=== PATIENT | female | born 1985 | race Caucasian/White ===

== ENCOUNTER 2023-05-30 08:00 | Outpatient (CLI) | payer BC ==
[2023-05-30 16:20] LABS: BILIRUBIN,URINE NEGATIVE (NEGATIVE); GLUCOSE, URINE (UA) NEGATIVE (NEGATIVE); KETONES,URINE (UA) NEGATIVE (NEGATIVE); LEUKOCYTE ESTERASE, URINE NEGATIVE (NEGATIVE); NITRITE,URINE NEGATIVE (NEGATIVE); OCCULT BLOOD,URINE NEGATIVE (NEGATIVE); PH,URINE 6.5 PH (5.0-7.5); PROTEIN,URINE NEGATIVE (NEGATIVE); UROBILINOGEN,URINE 0.2 (NORMAL) E.U./dL (NORMAL)
[2023-05-30 16:21] LABS: CLARITY,URINE CLEAR (CLEAR)
[2023-05-30 16:59] LABS: BACTERIA,URINE Moderate /HPF (None Seen); RBC,URINE None Seen /HPF (0-5); SQUAMOUS EPITHELIAL CELL,UR FEW Squamous (<= Few); WBC,URINE 0-3 /HPF (0-5)
== END 2023-05-30 23:59 | disposition home or self-care (01) ==
LOC: LAB 08:00
PROVIDERS: ATTEND Obstetrics & Gynecology
DX: Z34.90 Encounter for supervision of normal pregnancy, unspecified, unspecified trimester (principal)
CPT/HCPCS: 81001; 87086

== ENCOUNTER 2023-06-04 08:00 | Outpatient (CLI) | payer BC ==
[2023-06-04 20:47] LABS: CHLAMYDIA TRACHOMATIS DNA NEGATIVE (NEGATIVE); NEISSERIA GONORRHOEAE DNA NEGATIVE (NEGATIVE); TRICHOMONAS VAGINALIS DNA NEGATIVE (NEGATIVE)
== END 2023-06-04 23:59 | disposition home or self-care (01) ==
LOC: LAB.WC 08:00
PROVIDERS: ATTEND Obstetrics & Gynecology
DX: Z11.3 Encounter for screening for infections with a predominantly sexual mode of transmission (principal)
CPT/HCPCS: 87491; 87591; 87661

== ENCOUNTER 2023-06-07 15:34 | Outpatient (CLI) | payer BC ==
[2023-06-07 16:07] LABS: BASOPHILS # (AUTO) 0.1 10^3/uL (0.0-0.1); BASOPHILS % (AUTO) 0.6 %; EOSINOPHILS # (AUTO) 0.2 10^3/uL (0.0-0.7); EOSINOPHILS % (AUTO) 1.5 %; HCT - HEMATOCRIT 35.3 % (37.0-47.0); LYMPHOCYTES # (AUTO) 2.5 10^3/uL (1.5-3.5); LYMPHOCYTES % (AUTO) 23.9 %; MEAN CORPUSCULAR HEMOGLOBIN 30.8 pg (27.0-31.0); MEAN CORPUSCULAR VOLUME 90.7 fL (81.0-99.0); MEAN PLATELET VOLUME 10.6 fL (7.9-10.8); MONOCYTES # (AUTO) 0.6 10^3/uL (0.0-1.0); NEUTROPHILS # (AUTO) 7.1 10^3/uL (1.5-6.6); NEUTROPHILS % (AUTO) 67.8 %; PLT - PLATELET COUNT 250 10^3/uL (130-450); RED BLOOD COUNT 3.89 10^6/uL (4.20-5.40); WHITE BLOOD COUNT 10.5 x10^3/uL (4.8-10.8)
[2023-06-08 04:09] LABS: HBsAG SCREEN Negative (Negative)
[2023-06-08 05:12] LABS: HCV AB Non Reactive (Non Reactive); HIV SCREEN 4TH GENERATION Non Reactive (Non Reactive)
[2023-06-08 07:09] LABS: RPR Non Reactive (Non Reactive)
[2023-06-08 09:09] LABS: VARICELLA-ZOSTER AB IGG 1022 index (Immune >165)
== END 2023-06-07 15:35 | disposition home or self-care (01) ==
LOC: LAB 15:34
PROVIDERS: ATTEND Obstetrics & Gynecology
DX: O09.511 Supervision of elderly primigravida, first trimester (principal)
CPT/HCPCS: 36415; 85025; 86592; 86762; 86787; 86803; 86850; 86900; 86901; 87340; 87389

== ENCOUNTER 2023-08-08 14:57 | Outpatient (CLI) | payer BC ==
--- NOTE | 2023-08-08 19:22 | Ultrasound Report ---
PROCEDURE: OB Detailed Eval INDICATIONS: SUPERVISON OF IFV OUTSIDE/PRIOR DATING DATA: Last menstrual period (LMP): 04/03/2023. LMP-based estimated date of delivery (VANESSA): 12/25/2023. First dating scan (date and location): 06/15/2023. Estimated date of delivery (VANESSA) from first dating scan: 12/23/2023. The below data below was generated using the clinical VANESSA of 12/20/2023 TECHNIQUE: Real-time scanning was performed of the fetus, with image documentation and biometric measurements. Endovaginal scanning: Not performed. COMPARISON: Ultrasound 06/15/2023 FINDINGS: General: A single living intrauterine gestation is present. Presentation: Cephalic Placenta: Placental position is posterior, without previa. Amniotic fluid index: 11.7 cm, within normal limits for gestational age. heart rate: 147 beats per minute. Maternal cervical canal: 4.9 cm long; normal length is 2.5 cm or more. biometrics: Biparietal diameter: 5.4 cm, 20 weeks 4 days, 96% Head circumference: 19.1 cm, 20 weeks 3 days, 65% Abdominal circumference: 17.0 cm, 20 weeks 0 days, 70% Femur length: 3.3 cm, 20 weeks 3 days, 27% Estimated gestational age from initial scan: 20 weeks 6 days Composite gestational age from present scan: 21 weeks 4 days Estimated weight and percentile: 415 g, 71st percentile Measurement variability in biometric dating: +/- 10 days from 12-20 weeks gestation, +/- 2 weeks from 20-30 weeks gestation, +/- 3 weeks at 30 weeks gestation or later. Anatomic survey: Neuro: Ventricles are normal at less than 10 mm. Cisterna magna is normal at 3-11 mm. Cerebellum i s normal in size and morphology. Nuchal skin fold: Normal at less than 6 mm between 14 and 20 weeks gestational age. Face: Nose and lips, facial profile are normal. Spine: No evidence for spina bifida. Heart: 4-chambered heart is present, with normal ventricular outflow tracts. Diaphragm: Diaphragm is intact. Stomach: Left-sided stomach is present. Kidneys: No hydronephrosis. Normal is less than 5 mm in 2nd trimester, less than 7 mm in 3rd trimester. Cord: 3 vessel cord has orthotopic insertion. Bladder: Normal in size. Extremities: All 4 extremities are visualized. IMPRESSION: 1.Single live intrauterine consistent with 20 weeks and 4 days. 2.Normal anatomic survey. Reviewed by: Ludwin George MD on 08/08/2023 7:20 PM PST Approved by: Ludwin George MD on 08/08/2023 7:20 PM PST Station ID: [id number]
== END 2023-08-08 14:58 | disposition home or self-care (01) ==
LOC: DI 14:57
PROVIDERS: ATTEND Nurse Practitioner
DX: O09.811 Supervision of pregnancy resulting from assisted reproductive technology, first trimester (principal); O09.511 Supervision of elderly primigravida, first trimester; Z3A.20 20 weeks gestation of pregnancy

== ENCOUNTER 2023-09-20 09:32 | Outpatient (CLI) | payer BC ==
[2023-09-20 10:53] LABS: HCT - HEMATOCRIT 34.4 % (37.0-47.0); HGB - HEMOGLOBIN 11.5 g/dL (12.0-16.0); MEAN CORPUSCULAR HEMOGLOBIN 31.3 pg (27.0-31.0); MEAN CORPUSCULAR HGB CONC 33.4 g/dL (32.0-36.0); MEAN CORPUSCULAR VOLUME 93.5 fL (81.0-99.0); MEAN PLATELET VOLUME 9.9 fL (7.9-10.8); RED BLOOD COUNT 3.68 10^6/uL (4.20-5.40); RED CELL DISTRIBUTION WIDTH 12.7 % (12.0-15.0); WHITE BLOOD COUNT 9.1 x10^3/uL (4.8-10.8)
== END 2023-09-20 09:33 | disposition home or self-care (01) ==
LOC: LAB 09:32
PROVIDERS: ATTEND Nurse Practitioner
DX: O09.512 Supervision of elderly primigravida, second trimester (principal)
CPT/HCPCS: 36415; 82950; 85027; 86850

== ENCOUNTER 2023-11-28 08:00 | Outpatient (CLI) | payer BC ==
[2023-11-28 17:04] LABS: CREATININE,URINE 12.9 mg/dL; TOTAL PROTEIN,URINE TIMED < 4 mg/dL
== END 2023-11-28 23:59 | disposition home or self-care (01) ==
LOC: LAB.WC 08:00
PROVIDERS: ATTEND Nurse Practitioner
DX: O12.03 Gestational edema, third trimester (principal)
CPT/HCPCS: 82570; 84156

== ENCOUNTER 2023-11-29 09:38 | Outpatient (CLI) | payer BC ==
--- NOTE | 2023-11-29 13:12 | Ultrasound Report ---
PROCEDURE: OB Limited INDICATIONS: SUPERVISION OF OUTSIDE/PRIOR DATING DATA: Last menstrual period (LMP): 04/03/2023. IVF transfer date. LMP-based estimated date of delivery (VANESSA): 12/25/2023. First dating scan (date and location): 06/15/2023. Estimated date of delivery (VANESSA) from first dating scan: 12/23/2023. The below data below was generated using the clinical VANESSA of 12/20/2023. Final VANESSA by transfer date. TECHNIQUE: Real-time scanning was performed of the fetus, with image documentation. Endovaginal scanning: Not performed. COMPARISON: OB ultrasound 08/08/2023. FINDINGS: A single living intrauterine gestation is present. Presentation: Cephalic Placenta: Placental position is posterior, without previa. Amniotic fluid index: 11.5 cm, normal for gestational age. Largest pocket 3.8 cm. heart rate: 144 beats per minutes. Maternal cervical canal: 4.7 cm long; normal length is 2.5 cm or more. Closed. Estimated gestational age from initial scan: 37 weeks 0 days. IMPRESSION: 1. Bird living intrauterine at 37 weeks 0 days based on prior clinical dating. Cephali c position. 2. Normal placenta and amniotic fluid. NAEL 11.5 cm. Reviewed by: Dio Lopez MD on 11/29/2023 1:11 PM PST Approved by: Dio Lopez MD on 11/29/2023 1:11 PM PST Station ID: [id number]
== END 2023-11-29 09:39 | disposition home or self-care (01) ==
LOC: DI 09:38
PROVIDERS: ATTEND Obstetrics & Gynecology
DX: O09.813 Supervision of pregnancy resulting from assisted reproductive technology, third trimester (principal); Z3A.37 37 weeks gestation of pregnancy

== ENCOUNTER 2023-12-06 15:10 | Outpatient (CLI) | payer BC ==
--- NOTE | 2023-12-06 16:49 | Ultrasound Report ---
PROCEDURE: OB Limited INDICATIONS: SUPERVISION OF OUTSIDE/PRIOR DATING DATA: Last menstrual period (LMP): 04/03/2023. LMP-based estimated date of delivery (VANESSA): 12/25/2023. First dating scan (date and location): 06/15/2023. Estimated date of delivery (VANESSA) from first dating scan: 12/23/2023. The below data below was generated using the clinical VANESSA of 12/20/2023 TECHNIQUE: Real-time scanning was performed of the fetus, with image documentation. Endovaginal scanning: Not performed COMPARISON: 11/29/2023 FINDINGS: A single living intrauterine gestation is present. Presentation: Cephalic Placenta: Placental position is posterior, without previa. Amniotic fluid index: 19.0 cm, within normal limits for gestational age. heart rate: 136 beats per minutes. Maternal cervical canal: 2.3 cm long; normal length is 2.5 cm or more. Estimated gestational age from initial scan: 30 weeks, 0 days. IMPRESSION: 1.Single live intrauterine consistent with 30 weeks and 0 days. Normal amniotic fluid index measuring 19.0 cm. 2.Maternal cervical canal measures 2.3 cm in length, normal is 2.5 cm or greater. Recommend attention on follow-up. Reviewed by: Ludwin George MD on 12/06/2023 4:48 PM PDT Approved by: Ludwin George MD on 12/06/2023 4:48 PM PDT Station ID: [id number]
== END 2023-12-06 15:11 | disposition home or self-care (01) ==
LOC: DI 15:10
PROVIDERS: ATTEND Obstetrics & Gynecology
DX: O26.873 Cervical shortening, third trimester (principal); Z3A.30 30 weeks gestation of pregnancy

== ENCOUNTER 2023-12-06 15:33 | Outpatient (CLI) | payer BC ==
--- NOTE | 2023-12-06 15:58 | PROCEDURE REPORT ---
- HPI Diagnosis/Indication for NST: Other (IVF ) - NST Procedure baseline 125. Reactive for of 32 weeks gestation or more. NST tracing contains at least two heart rate accelerations that are at least 15 beats per minute above the baseline rate and lasting at least 15 seconds from onset to return to baseline within a twenty minute period. - Results and Plan Plan: care as scheduled
[2023-12-06 16:03] VITALS: BP 121/73
[2023-12-06 16:32] VITALS: O2SAT 98
== END 2023-12-06 16:10 | disposition home or self-care (01) ==
LOC: WFO 15:33 → FBP 15:36 → WFO 16:10
PROVIDERS: ATTEND Obstetrics & Gynecology
DX: O09.813 Supervision of pregnancy resulting from assisted reproductive technology, third trimester (principal); O26.873 Cervical shortening, third trimester; Z3A.30 30 weeks gestation of pregnancy
CPT/HCPCS: 59025

== ENCOUNTER 2023-12-13 15:08 | Outpatient (CLI) | payer BC ==
--- NOTE | 2023-12-13 16:40 | Ultrasound Report ---
PROCEDURE: OB Follow up INDICATIONS: Supervision of - EFW OUTSIDE/PRIOR DATING DATA: IVP transfer: 04/03/2023. IVP transfer-based estimated date of delivery (VANESSA): 12/25/2023. TECHNIQUE: Real-time scanning was performed of the fetus, with image documentation and biometric measurements. Endovaginal scanning: Not performed. COMPARISON: 12/06/2023. FINDINGS: General: A single living intrauterine gestation is present. Presentation: Cephalic Placenta: Placental position is posterior, without previa. Amniotic fluid index: 13.3 cm, within normal limits for gestational age. heart rate: 137 beats per minute. Maternal cervical canal: 3.8 cm long; normal length is 2.5 cm or more. biometrics: Biparietal diameter: 9.7 cm, 39 weeks 5 days, 93rd percentile Head circumference: 34.0 cm, 39 weeks 1 day, 41st percentile Abdominal circumference: 34.4 cm, 38 weeks 2 days, 54th percentile Femur length: 7.3 cm, 37 weeks 1 day, 15th percentile Estimated gestational age from initial scan: 39 weeks 0 days Composite gestational age from present scan: 38 weeks 4 days. Estimated weight and percentile: 3436 g, 53rd percentile Measurement variability in biometric dating: +/- 10 days from 12-20 weeks gestation, +/- 2 weeks from 20-30 weeks gestation, +/- 3 weeks at 30 weeks gestation or more. Other: Not applicable. IMPRESSION: Single living intrauterine at 39 weeks 0 days. Estimated weight of 3436 g, 53rd percentile. Reviewed by: Bari Snow MD on 12/13/2023 4:39 PM PDT Approved by: Bari Snow MD on 12/13/2023 4:39 PM PDT Station ID: [id number]
== END 2023-12-13 15:09 | disposition home or self-care (01) ==
LOC: DI 15:08
PROVIDERS: ATTEND Obstetrics & Gynecology
DX: O09.813 Supervision of pregnancy resulting from assisted reproductive technology, third trimester (principal); O09.513 Supervision of elderly primigravida, third trimester; Z3A.39 39 weeks gestation of pregnancy

== ENCOUNTER 2023-12-13 15:38 | Outpatient (CLI) | payer BC ==
[2023-12-13 15:55] VITALS: BP 121/78
--- NOTE | 2023-12-13 23:32 | PROCEDURE REPORT ---
- HPI Diagnosis/Indication for NST: Other (AMA) Current EDU 12/20/23 Gestation 39 Weeks and 0 Days 1 Para 0 Vital Signs Temperature 97.9 F 12/13/23 15:51 Heart Rate 89 12/13/23 15:51 Respiratory Rate 17 12/13/23 15:51 Blood Pressure 121/78 12/13/23 15:51 Temperature 97.9 F 12/13/23 15:51 Heart Rate 89 12/13/23 15:51 Respiratory Rate 17 12/13/23 15:51 Blood Pressure 121/78 12/13/23 15:51 O2 Saturation If not protocol: Oxygen Flow, liters/minute - NST Procedure NST Procedure Start Date 12/13/23 Start Time 15:53 Stop Time 16:15 Vibroacoustic Stimulation Used No Patient States Movement Yes - Results and Plan Findings/Impression: Reactive for of 32 weeks gestation or more. NST tracing contains at least two heart rate accelerations that are at least 15 beats per minute above the baseline rate and lasting at least 15 seconds from onset to return to baseline within a twenty minute period. baseline 125. Plan: as scheduled
== END 2023-12-13 16:17 | disposition home or self-care (01) ==
LOC: WFO 15:38 → FBP 15:42 → WFO 16:17
PROVIDERS: ATTEND Obstetrics & Gynecology
DX: O09.813 Supervision of pregnancy resulting from assisted reproductive technology, third trimester (principal); Z3A.39 39 weeks gestation of pregnancy
CPT/HCPCS: 59025; 99211

== ENCOUNTER 2023-12-20 15:06 | Outpatient (CLI) | payer BC ==
--- NOTE | 2023-12-20 17:19 | Ultrasound Report ---
PROCEDURE: OB Limited INDICATIONS: SUPERVISION OF OUTSIDE/PRIOR DATING DATA: Last menstrual period (LMP): 04/03/2023. LMP-based estimated date of delivery (VANESSA): 12/25/2023. First dating scan (date and location): 06/15/2023 and. The below data below was generated using the working VANESSA of 12/20/2023 TECHNIQUE: Real-time scanning was performed of the fetus, with image documentation. Endovaginal scanning: None COMPARISON: 12/13/2023 FINDINGS: A single living intrauterine gestation is present. Presentation: Cephalic Placenta: Placental position is posterior, without previa. Amniotic fluid index: 9.8 cm, 21.5 percentile for gestational age. heart rate: 133 beats per minutes. Maternal cervical canal: Not well seen Estimated gestational age from initial scan: 40 week 0 day. IMPRESSION: Single live intrauterine consistent with 20 week 0 day gestation. Amniotic fluid index 9 point centimeters, 21.5 percentile Reviewed by: Devaughn Rivera MD on 12/20/2023 4:18 PM VIKTORIYA Approved by: Devaughn Rivera MD on 12/20/2023 4:18 PM VIKTORIYA Station ID: [id number]
== END 2023-12-20 15:07 | disposition home or self-care (01) ==
LOC: DI 15:06
PROVIDERS: ATTEND Obstetrics & Gynecology
DX: O09.813 Supervision of pregnancy resulting from assisted reproductive technology, third trimester (principal); Z3A.40 40 weeks gestation of pregnancy

== ENCOUNTER 2023-12-20 15:26 | Outpatient (CLI) | payer BC ==
[2023-12-20 15:52] VITALS: BP 120/81
--- NOTE | 2023-12-20 18:50 | PROCEDURE REPORT ---
- HPI Current EDU 12/20/23 Gestation 40 Weeks and 0 Days 1 Para 0 Vital Signs Temperature 98.0 F 12/20/23 15:44 Heart Rate 98 12/20/23 15:44 Respiratory Rate 18 12/20/23 15:44 Blood Pressure 120/81 H 12/20/23 15:44 Temperature 98.0 F 12/20/23 15:44 Heart Rate 98 12/20/23 15:44 Respiratory Rate 18 12/20/23 15:44 Blood Pressure 120/81 H 12/20/23 15:44 O2 Saturation If not protocol: Oxygen Flow, liters/minute - NST Procedure NST Procedure Start Date 12/20/23 Start Time 15:35 Stop Time 16:04 Vibroacoustic Stimulation Used No Patient States Movement Yes - Results and Plan Plan: Patient is a 38-year-old G1, P0 at 39 weeks 6 days gestation here for NST. NST Performed 12/20/2023 NST Read 12/20/2023 FHT: 130 bpm baseline, moderate variability, accelerations present, no decelerations. Reactive NST [place]: Quiescent Diagnosis 39 weeks gestation IVF Continue with scheduled OB care
== END 2023-12-20 16:10 | disposition home or self-care (01) ==
LOC: WFO 15:26 → FBP 15:29 → WFO 16:10
PROVIDERS: ATTEND Obstetrics & Gynecology
DX: O09.813 Supervision of pregnancy resulting from assisted reproductive technology, third trimester (principal); Z3A.39 39 weeks gestation of pregnancy
CPT/HCPCS: 59025

== ENCOUNTER 2023-12-27 08:05 | Inpatient (IN) | payer BC ==
[2023-12-27] MEDS ORDERED: OXYTOCIN 10 UNIT/ML VIAL IM PRN (09:04)
[2023-12-27] MEDS ORDERED: METHYLERGONOVINE 0.2 MG/ML VIAL IM PRN (09:04)
[2023-12-27] MEDS ORDERED: LABETALOL 20 MG/4 ML SYRINGE IVP PRN ×3 (09:04)
[2023-12-27] MEDS ORDERED: lidocaine 1% 20 ML MDV ID PRN (09:04)
[2023-12-27] MEDS ORDERED: LACTATED RINGERS 1,000 ML IV PRN (09:04)
[2023-12-27] MEDS ORDERED: SODIUM CHLORIDE FLUSH 0.9% 10 ML SYRINGE IVP PRN (09:04)
[2023-12-27] MEDS ORDERED: OXYTOCIN/SODIUM CHLORIDE 500 ML IV PRN (09:04)
[2023-12-27] MEDS ORDERED: fentaNYL 100 MCG/2 ML VIAL IVP PRN (09:04)
[2023-12-27] MEDS ORDERED: NIFEdipine 10 MG CAPSULE PO PRN (09:04)
[2023-12-27] MEDS ORDERED: miSOPROStoL 200 MCG TABLET PR PRN (09:04)
[2023-12-27] MEDS ORDERED: TERBUTALINE 1 MG/ML VIAL SUBQ PRN (09:04)
[2023-12-27] MEDS ORDERED: ONDANSETRON ODT 4 MG TABLET TL PRN (09:04)
[2023-12-27] MEDS ORDERED: hydrALAZINE INJ 20 MG/ML VIAL IVP PRN ×2 (09:04)
[2023-12-27] MEDS ORDERED: miSOPROStoL 200 MCG TABLET BC PRN (09:04)
[2023-12-27] MEDS ORDERED: ACETAMINOPHEN 500 MG TABLET PO PRN (09:04)
--- NOTE | 2023-12-27 09:06 | HISTORY & PHYSICAL EXAMINATION ---
Admit History - : 1 Parity: 0 - Mother's Labs Mother's Blood Type: positive: A Mother's RH: positive: Positive GBS: positive: Group B Step Negative Rubella Status: positive: Equivocal - Other Maternal History Other Maternal History: HPI: 38-year-old G1, P0 at 41 weeks 0 days gestation here for induction of labor. Declined earlier induction. She has good movement. Denies loss of fluid. No DURÁN/BV or RUQP. No vaginal bleeding. Denies nausea and vomiting. Denies urinary urgency or dysuria. All other symptoms reviewed and were negative except per HPI. Course LMP 03/15/2023 Embryo transfer: 04/03/2023 Initial ultrasound 05/23/2023, 9 weeks 6 days gestation, VANESSA 12/20/2023. Final VANESSA: 12/20/2023 by embryo transfer date IVF : High risk. ASA started at 19 weeks. surveillance at 36 weeks Elderly primagravida Pre- Weight: 155 BMI: 26 Blood type: A+ Rh:+ Antibody: Negative CBC: H/H 12.0/35.3 PLT 250 RUB:Equivocal VZV: + history- Immune HBsAg: Negative HepC: Non reactive RPR/AB-EIA: Non reactive HIV: Non reactive PAP:01/21/2022 Normal GC/CT:Negative HSV:oral self Genetic testing: MaterniT-21- Negative AFP-Declined Covid:vax x1 covid x1. Repeat declined. Recommend at future visits. Flu: Declining. Encourage at future visits. RSV: FAS: ordered 07/04/2023WNL EFW 71st% 3 VC Posterior placenta NAEL normal FHT 147bpm 50gm OGCT: ordered 08/23 102 TDAP: Declined 09/29 Breast Pump: given 09/25 3rd trimester PLT: 230 HCT 34.4 HGB 11.5 GBS: 11/21 NEGATIVE Delivery plan: Contraception: None. Required IVF PMH Denies pertinent issues PSH No previous surgeries OB History G1, P0 SH Former smoker. No alcohol or drug use. Family History Maternal grandfather: Lung cancer Mother: Thyroid disease Sister: Thyroid disease Paternal grandmother: Leukemia Father: Melanoma Allergies No known drug allergies Medications Omeprazole Sumatriptan vitamins Physical exam: General: Alert, oriented, no acute distress Head: Normal cephalic atraumatic Eyes: PERRLA, extraocular motions intact. Respiratory: Normal rate of respiration. No accessory muscle use, normal respiratory effort. Cardiovascular: Regular rate and rhythm Abdomen: Gravid, nontender, nondistended Extremities: Normal range of motion Neuro: Oriented x3. Normal movements Psych: Appropriate mood and affect. Normal judgment and insight SVE: 270/-2 FHT: 135 bpm baseline, moderate variability, accelerations present, no decelerations. [place]: Irregular Plan Induction of labor -Admit for observation for cervical ripening, plan to admit if cervix is favorable. 41 weeks gestation -Routine care IVF -Routine care Rubella equivocal -MMR - NST Procedure NST Procedure Start Time 15:35 Stop Time 16:04 Meds/Allgy - Allergies Allergies/Adverse Reactions: Allergies Allergy/AdvReac Type Severity Reaction Status Date / Time No Known Drug Allergies Allergy Verified 12/27/23 11:24 Plan for Labor - Plan For Labor I expect patient to be DC'd or transferred within 96 hours.: Yes
[2023-12-27] MEDS ORDERED: SODIUM CHLORIDE FLUSH 0.9% 10 ML SYRINGE IVP SCH (10:00)
[2023-12-27] MEDS: miSOPROStoL 100 MCG TABLET VG SCH (10:29)
[2023-12-27] MEDS: CALCIUM CARBONATE CHEW 500 MG TABLET PO PRN (11:18)
[2023-12-27] MEDS: LACTATED RINGERS 1,000 ML IV SCH (12:57)
--- NOTE | 2023-12-27 13:03 | ANESTHESIA ---
Pre-Anesthesia VS, & Labs - Diagnosis induction of labor - Procedure labor epidural Vital Signs: Temp Pulse Resp BP Pulse Ox O2 Flow Rate 36.9 C 97 16 115/74 12/27/23 10:58 12/27/23 10:58 12/27/23 10:58 12/27/23 10:58 Height: 5 ft 5 in Weight (kg): 86.581 kg Body Mass Index: 31.7 BMI Classification: Obese - NPO Other - Is Patient ?: Yes Home Medications and Allergies Active Medications Acetaminophen (Acetaminophen 500 Mg Tablet) 1,000 mg PO Q6HR PRN PRN Reason: Pain or Fever > 38C (100.4F) Calcium Carbonate/Glycine (Calcium Carbonate Chew 500 Mg Tablet) 500 mg PO BID PRN PRN Reason: Heartburn Last Admin: 12/27/23 11:18 Dose: 500 mg Fentanyl (Fentanyl 100 Mcg/2 Ml Vial) 50 mcg IVP Q1H PRN PRN Reason: Severe Pain (score 7-10) Hydralazine HCl (Hydralazine Inj 20 Mg/Ml Vial) 10 mg IVP .ONCE PRN; Protocol PRN Reason: SBP> or= 160 OR DBP> or= 110 Hydralazine HCl (Hydralazine Inj 20 Mg/Ml Vial) 5 - 10 mg IVP Q20M PRN; Protocol PRN Reason: SBP> or= 160 OR DBP> or= 110 Oxytocin/Sodium Chloride (Pitocin/Sodium Chloride) 500 mls @ 999 mls/hr IV PRN PRN; Protocol PRN Reason: POST- HEMORR PREVENTION Tranexamic Acid (Tranexamic 1,000 Mg/100ml-Nacl) 1,000 mg in 100 mls @ 600 mls/hr IV Q30M PRN PRN Reason: EBL >1200mL and within 3hr Lactated Ringer's (Lr) 1,000 mls @ 125 mls/hr IV .Q8H MISTI Last Admin: 12/27/23 12:57 Dose: 125 mls/hr Lactated Ringer's (Lr) 1,000 mls @ 999 mls/hr IV PRN PRN PRN Reason: PER PHYSICIAN ORDER Labetalol HCl (Labetalol 20 Mg/4 Ml Syringe) 20 mg IVP .ONCE PRN; Protocol PRN Reason: SBP> or= 160 OR DBP> or= 110 Labetalol HCl (Labetalol 20 Mg/4 Ml Syringe) 20 - 80 mg IVP Q10M PRN; Protocol PRN Reason: SBP> or= 160 OR DBP> or= 110 Labetalol HCl (Labetalol 20 Mg/4 Ml Syringe) 20 - 40 mg IVP Q10M PRN; Protocol PRN Reason: SBP> or= 160 OR DBP> or= 110 Lidocaine HCl (Lidocaine 1% 20 Ml Mdv) 20 ml ID .ONCE PRN PRN Reason: PERINEAL REPAIR Stop: 12/30/23 09:05 Methylergonovine Maleate (Methylergonovine 0.2 Mg/Ml Vial) 0.2 mg IM .ONCE PRN PRN Reason: Hemorrhage Misoprostol (Misoprostol 200 Mcg Tablet) 600 mcg BC .ONCE PRN PRN Reason: Hemorrhage Misoprostol (Misoprostol 200 Mcg Tablet) 800 mcg ND .ONCE PRN PRN Reason: Hemorrhage Misoprostol (Misoprostol 100 Mcg Tablet) 25 mcg VG Q4H MISTI Last Admin: 12/27/23 10:29 Dose: 25 mcg Nifedipine (Nifedipine 10 Mg Capsule) 10 - 20 mg PO Q20M PRN; Protocol PRN Reason: SBP> or= 160 OR DBP> or= 110 Ondansetron HCl (Ondansetron Odt 4 Mg Tablet) 4 mg TL Q6HR PRN PRN Reason: Nausea / Vomiting Oxytocin (Oxytocin 10 Unit/Ml Vial) 10 unit IM .ONCE PRN PRN Reason: Step One if no IV access. Sodium Chloride (Sodium Chloride Flush 0.9% 10 Ml Syringe) 10 ml IVP Q8H [facility] Sodium Chloride (Sodium Chloride Flush 0.9% 10 Ml Syringe) 10 ml IVP PRN PRN PRN Reason: NEEDED PER PROVIDER ORDERS Terbutaline Sulfate (Terbutaline 1 Mg/Ml Vial) 0.25 mg SUBQ .ONCE PRN PRN Reason: Tachystole Allergies/Adverse Reactions: Allergies Allergy/AdvReac Type Severity Reaction Status Date / Time No Known Drug Allergies Allergy Verified 12/27/23 11:24 Anes History & Medical History - Anesthetic History Anesthesia Complications: reports: No previous complications - Medical History Cardiovascular: reports: None Pulmonary: reports: None Gastrointestinal: reports: GERD Urinary: reports: None Neuro: reports: None Musculoskeletal: reports: None Endocrine/Autoimmune: reports: None Smoking Status: Former smoker History of Cancer?: No Exam General: Alert, Oriented x3, Cooperative Dental: WNL Mouth Opening: Greater than 4 Fingerbreadths Neck Mobility: Normal Mallampati classification: I Thyromental Distance: greater than 6 cm Respiratory: Lungs clear Cardiovascular: Regular rate Plan Anesthesia Type: Epidural Consent for Procedure(s) Verified and Reviewed: Yes Code Status: Attempt Resuscitation ASA classification: 2-Mild systemic disease Is this case an emergency?: No
[2023-12-27] MEDS ORDERED: LIDOCAINE 2%-EPI 1:100000 20 ML MDV ONE (15:44)
[2023-12-27] MEDS ORDERED: ROPIVACAINE 0.2% 200 MG/100 ML BAG EP ONE (15:44)
[2023-12-27] MEDS ORDERED: METOCLOPRAMIDE 10 MG/2 ML VIAL IVP PRN (18:15)
[2023-12-27] MEDS ORDERED: NALOXONE 0.4 MG/ML VIAL IVP PRN (18:15)
[2023-12-27] MEDS ORDERED: diphenhydrAMINE INJ 50 MG/ML VIAL IVP PRN (18:15)
[2023-12-27] MEDS ORDERED: NALBUPHINE 10 MG/ML AMP IVP PRN (18:15)
[2023-12-27] MEDS: ePHEDrine 50 MG/ML VIAL IVP PRN (18:35)
[2023-12-27] MEDS: ONDANSETRON 4 MG/2 ML VIAL IVP PRN (18:39)
--- NOTE | 2023-12-27 18:44 | PROVIDER PROGRESS NOTE ---
Labor Progress Note - Uterine Monitoring Uterine Monitoring Mode: positive: External toco Contraction Frequency (min/apart): 2-5 Contraction Intensity: positive: Moderate to strong - Monitoring Monitor Mode: positive: External ultrasound - Vaginal Exam Dilation (in cm): 5 Effacement (%): 80 - Labor Progress Note Labor Progress Note/Additional Text: Difficult to assess baseline, but doing better after epidural with pain. Hypotensive with late decelerations and received epinephrine. Currently imporoved. Will continue to monitor. Contractions have spaced out. Will recheck in 2 hours and consider oxytocin if not continuing to change.
[2023-12-28 00:05] LABS: BASOPHILS # (AUTO) 0.1 10^3/uL (0.0-0.1); BASOPHILS % (AUTO) 0.8 %; EOSINOPHILS # (AUTO) 0.2 10^3/uL (0.0-0.7); EOSINOPHILS % (AUTO) 2.6 %; HCT - HEMATOCRIT 38.7 % (37.0-47.0); HGB - HEMOGLOBIN 11.8 g/dL (12.0-16.0); LYMPHOCYTES # (AUTO) 2.1 10^3/uL (1.5-3.5); LYMPHOCYTES % (AUTO) 23.9 %; MEAN CORPUSCULAR HEMOGLOBIN 29.8 pg (27.0-31.0); MEAN CORPUSCULAR HGB CONC 30.5 g/dL (32.0-36.0); MEAN CORPUSCULAR VOLUME 97.7 fL (81.0-99.0); MEAN PLATELET VOLUME 11.9 fL (7.9-10.8); MONOCYTES # (AUTO) 0.8 10^3/uL (0.0-1.0); NEUTROPHILS # (AUTO) 5.7 10^3/uL (1.5-6.6); NEUTROPHILS % (AUTO) 63.3 %; PLT - PLATELET COUNT 217 10^3/uL (130-450); RED BLOOD COUNT 3.96 10^6/uL (4.20-5.40); RED CELL DISTRIBUTION WIDTH 14.2 % (12.0-15.0); WHITE BLOOD COUNT 8.9 x10^3/uL (4.8-10.8)
[2023-12-28] MEDS: OXYTOCIN/SODIUM CHLORIDE 500 ML IV SCH (00:23)
[2023-12-28] MEDS: ROPIVACAINE 0.2% 200 MG/100 ML BAG EP PRN (00:31)
--- NOTE | 2023-12-28 05:47 | PROVIDER PROGRESS NOTE ---
Labor Progress Note - Uterine Monitoring Uterine Monitoring Mode: positive: External toco Contraction Frequency (min/apart): 2-3 Contraction Intensity: positive: Strong - Monitoring Monitor Mode: positive: External ultrasound Heart Rate Baseline: 140 Heart Rate Variability: positive: Moderate (6-25 bmp) Accelerations: positive: Present, 15x15 Decelerations: positive: Early - Vaginal Exam Dilation (in cm): 10 Effacement (%): 100 Station: 0 - Labor Progress Note Labor Progress Note/Additional Text: Patient progressed to complete. Received one dose of misoprostol yesterday around 1029 then with regular contractions, she received an epidural for pain control. She contracted on her own until 6cm then stalled. Oxytocin was started around 0023 and progressed to 9cm then spontaneously ruptured at 0447 and was checked and found to be complete at 0521 and was coached on and began pushing. Overall reassuring FHT. Had a prolonged deceleration in the middle of the day yesterday then a deceleration with rupture of membranes, but overall, category 1 for her labor. Anticipate .
[2023-12-28] MEDS: TRANEXAMIC ACID IN NACL 1,000 MG/100 ML BAG IV PRN (07:37)
[2023-12-28] MEDS ORDERED: SIMETHICONE CHEW 80 MG TABLET PO PRN (08:39)
[2023-12-28] MEDS ORDERED: ONDANSETRON 4 MG/2 ML VIAL IVP PRN (08:39)
[2023-12-28] MEDS ORDERED: CALCIUM CARBONATE CHEW 500 MG TABLET PO PRN (08:39)
[2023-12-28] MEDS ORDERED: LACTATED RINGERS 1,000 ML IV SCH (09:00)
--- NOTE | 2023-12-28 09:00 | DELIVERY NOTE ---
Delivery Note - Labor Labor: positive: Augmented by oxytocin - Cervical Ripening Method Cervical Ripening Method: positive: Misoprostil - Presentation Presentation: positive: ADAM - right occiput anterior - Nuchal Cord Nuchal Cord: positive: None - Anesthetic Anesthetic Type: - Amniotic Fluid Description Amniotic Fluid Description: positive: Moderate meconium - Laceration Laceration: positive: 3rd degree (A), Periurethral, Vaginal - Suture Suture Type: positive: Vicryl (3-0, 2-0), Chromic (3-0) - Delivery Outcome Delivery Outcome: positive: Livebirth - Elwin Elwin: positive: Placed in direct skin contact with mother sex: positive: Female - Cord Cord: positive: 3 vessels - Placenta Placenta: positive: Intact - Estimated Blood Loss Estimated Blood Loss (in cc): 900 - Post Delivery Events Post Delivery Events: positive: No post delivery events - Delivery Comments (Free Text/Narrative) Delivery Comments (Free Text/Narrative): Preoperative Diagnoses 41 weeks gestation IVF Postoperative Diagnoses Same Status post 1 transvaginal delivery Delivery of live us Patient was admitted for induction of labor at 41 weeks. She received 1 dose of misoprostol and began thu regularly. She progressed to 6 cm then stalled. She did have an epidural for pain control. Oxytocin was started and progressed to 9 cm when she had spontaneous rupture of membranes then progressed to complete. Delivery Summary: Patient was placed in the dorsal lithotomy position. Upon maternal pushing the h ead was delivered atraumatically followed by the anterior shoulder, posterior shoulder, then the remainder of the infant's body. A female infant was delivered with APGARS of 8 at 1 minute and 8 at 5 minutes. The was placed on its mother's chest . After the cord finished pulsating, the umbilical cord was clamped times two and cut. The placenta delivered intact with three vessel cord. Placenta was not sent to pathology. Thirty units of Pitocin were added to the IV fluid and allowed to run freely. Uterine massage was performed until uterus was deemed firm. Upon inspection of the perineum, multiple lacerations were noted, including a 3- A midline laceration that was repaired with reinforcing stitches of 2-0 Vicryl and a running suture of 3-0 Vicryl in the usual fashion to close the second- degree portion. An additional right vaginal tear was closed with 2 [id number] stitches of 3-0 Vicryl. A periurethral/periclitoral tear was performed with 3-0 chromic. After the procedure, straight catheter was performed to ensure patency of the urethra. Rectal exam showed no suture in the rectum. Due to the brisk bleeding of the repair areas and amount of bleeding, patient was given tranexamic acid. Upon re-inspection the patient was hemostatic. Uterus again massaged and found to be firm. Needle and sponge counts were correct. Patient was stable and allowed to recover in L&D room. did require some additional support for oxygenation, although overall is doing well. See pediatric note for details. weight is pending at this time.
[2023-12-28] MEDS: IBUPROFEN 600 MG TABLET PO SCH (09:37)
[2023-12-28] MEDS: ACETAMINOPHEN 500 MG TABLET PO SCH (09:38)
[2023-12-28 12:08] LABS: BASOPHILS # (AUTO) 0.1 10^3/uL (0.0-0.1); BASOPHILS % (AUTO) 0.3 %; EOSINOPHILS # (AUTO) 0.1 10^3/uL (0.0-0.7); EOSINOPHILS % (AUTO) 0.3 %; HCT - HEMATOCRIT 31.4 % (37.0-47.0); HGB - HEMOGLOBIN 10.4 g/dL (12.0-16.0); LYMPHOCYTES # (AUTO) 1.5 10^3/uL (1.5-3.5); MEAN CORPUSCULAR HEMOGLOBIN 30.2 pg (27.0-31.0); MEAN CORPUSCULAR HGB CONC 33.1 g/dL (32.0-36.0); MEAN CORPUSCULAR VOLUME 91.3 fL (81.0-99.0); MONOCYTES # (AUTO) 1.7 10^3/uL (0.0-1.0); NEUTROPHILS # (AUTO) 13.4 10^3/uL (1.5-6.6); NEUTROPHILS % (AUTO) 79.7 %; PLT - PLATELET COUNT 222 10^3/uL (130-450); RED BLOOD COUNT 3.44 10^6/uL (4.20-5.40); RED CELL DISTRIBUTION WIDTH 13.7 % (12.0-15.0); WHITE BLOOD COUNT 16.8 x10^3/uL (4.8-10.8)
[2023-12-28 12:09] LABS: PLATELET ESTIMATE, MANUAL NORMAL (130-450,000) (NORMAL); PLATELET MORPHOLOGY NORMAL APPEARANCE (NORMAL); RBC MORPHOLOGY (MULTIPLE) NORMAL APPEARANCE (NORMAL); SLIDE REVIEW? Indicated; WBC MORPHOLOGY (MULTIPLE) NORMAL APPEARANCE (NORMAL)
[2023-12-28] MEDS: DOCUSATE SODIUM 100 MG CAPSULE PO PRN (15:31)
--- NOTE | 2023-12-28 16:38 | PROVIDER PROGRESS NOTE ---
Subjective - Subjective Subjective: baby intubated and transferred to [facility]. seems to have meconium aspiration. I came in to talk to parents about timing of discharge. Constanza is still quite sore and did not sleep last night so is quite tired. She has not eaten much today if anything. realizing when I saw her that she should eat. Parents, of course, are surprised by their daughter needing to be transfered. seemed ok and then started having trouble breathing a some time after . Mom is able to get up and go to bathroom. bleeding seems normal. Objective - Vital Signs/Intake & Output Reviewed Vital Signs: Yes Vital Signs: Vital Signs x48h Temp Pulse Resp BP Pulse Ox 12/28/23 09:49 102 H 16 120/71 99 12/28/23 09:31 103 H 111/74 12/28/23 08:54 97.5 F L 97 16 120/70 100 12/28/23 08:35 109/73 Intake & Output: Intake & Output 12/25/23 12/26/23 12/27/23 12/28/23 23:59 23:59 23:59 23:59 Intake Total 1000 1.950 Output Total 250 1 Balance 750 0.950 - Objective General Appearance: positive: No acute distress - Lab Results Fish Bones: 12/28/23 12:04 Other Labs: Lab Results x24hrs 12/28/23 12/27/23 Range/Units 12:04 08:55 WBC 16.8 H 8.9 (4.8-10.8) x10^3/uL RBC 3.44 L 3.96 L (4.20-5.40) 10^6/uL Hgb 10.4 L 11.8 L (12.0-16.0) g/dL Hct 31.4 L 38.7 (37.0-47.0) % MCV 91.3 97.7 (81.0-99.0) fL MCH 30.2 29.8 (27.0-31.0) pg MCHC 33.1 30.5 L (32.0-36.0) g/dL RDW 13.7 14.2 (12.0-15.0) % Plt Count 222 217 (130-450) 10^3/uL MPV 11.0 H 11.9 H (7.9-10.8) fL Neut # (Auto) 13.4 H 5.7 (1.5-6.6) 10^3/uL Lymph # (Auto) 1.5 2.1 (1.5-3.5) 10^3/uL [place] # (Auto) 1.7 H 0.8 (0.0-1.0) 10^3/uL Eos # (Auto) 0.1 0.2 (0.0-0.7) 10^3/uL Baso # (Auto) 0.1 0.1 (0.0-0.1) 10^3/uL Absolute Nucleated RBC 0.00 0.00 x10^3/uL Nucleated RBC % 0.0 0.0 /100WBC Manual Slide Review Indicated WBC Morphology NORMAL APPEARANCE (NORMAL) Platelet Estimate NORMAL (130-450,000) (NORMAL) Platelet Morphology NORMAL APPEARANCE (NORMAL) RBC Morph Micro Appear NORMAL APPEARANCE (NORMAL) Assessment/Plan - Problem List (1) Third degree laceration of perineum, type 3a Impression: discussed keeping stool from getting hard. has stool softeners ordered. discussed challenges of eating hospital food while there with her baby. Would benefit from resting here overnight before she go to be with her baby. will help her start pumping. (3) hemorrhage of vagina Impression: CBC 31.4 % at noon. seems stable. no signs/sx of hypovolemia. able to get up to bathroom. rest encouraged. so far, she will stay here for until morning but may change her mind. dis cussed options.
--- NOTE | 2023-12-29 09:17 | DISCHARGE SUMMARY ---
"Discharge Summary Admit Date: 12/27/23 Discharge Date: 12/29/23 Discharging Provider: Mahogany Moses MD Code Status: Attempt Resuscitation Condition at Discharge: Good Discharge Disposition: 01 Home, Self Care - DIAGNOSES Admission Diagnoses: labor induction at 41 weeks. vaginal delivery. hemorrhage from vaginal lacerations. partial 3rd degree laceration baby with breathing issues and had to be transferred to [facility]. Discharge Diagnoses with Status of Each Condition: patient is stable. doing well now. - HPI History of Present Illness: First , conceived with IVF. uncomplicated. - CONSULTS | PROCEDURES Procedures: vaginal delivery. repair of lacerations - HOSPITAL COURSE Hospital Course: Patient was admitted and received misoprostol x 1. began having painful contractions. received epidural. pitocin augmentation. SROM at 0447 on 12/27, fluid was clear initially. Vaginal delivery at 0722 on 12/27. meconium noted before delivery. Partial 3rd degree laceration and other vaginal lacerations repaired and led to blood loss of about 900 cc. Received TXA x 1. Baby was a girl named Sue weighing 3930 gm and 51 cm long. Apgars were 8/8. Shortly after Sue was born, she had trouble breathing and was moved to the nursery and ultimately had to be intubated and transfered to [facility]. Mom stayed overnight and was discharged in am. By morning she was feeling a bit better. Anxious to go see her daughter. She received MMR vaccine prior to discharge. - ALLERGIES Allergies/Adverse Reactions: Allergies Allergy/AdvReac Type Severity Reaction Status Date / Time No Known Drug Allergies Allergy Verified 12/27/23 11:24 - MEDICATIONS Home Medications: Ambulatory Orders Medication Instructions Recorded Confirmed Omeprazole 20 mg PO DAILY 12/27/23 12/27/23 Docusate Sodium 100Mg Capsule 100 - 200 mg PO BID PRN #60 cap 12/29/23 [Colace 100Mg Capsule] Ibuprofen [Motrin] 600 mg PO Q6H PRN #50 tab 12/29/23 - PHYSICAL EXAM AT DISCHARGE General Appearance: positive: No acute distress Extremities: positive: Non-tender, Nml appearance, Other - LABS Result Diagrams: 12/28/23 12:04 - FOLLOW UP Follow Up: in clinic in 1-2 weeks. - TIME SPENT Time Spent in Discharge (Minutes): 30"
[2023-12-29 09:19] VITALS: BP 126/77; O2SAT 99
[2023-12-29] MEDS: MEASLES,MUMPS & RUBELLA VACC 0.5 ML VIAL SUBQ ONE (09:59)
--- NOTE | 2023-12-29 10:52 | Labor Flowsheet ---
Labor Flowsheet Datetime Report Generated by CPN: 12/29/2023 10:52 Datetime: 12/29/2023 08:24 VITAL SIGNS NBP Sys/[place]/Mean (mmHg): 122 : 65 : 79 Pulse: 90 Datetime: 12/28/2023 07:36 Medication Comments: 1000mg TXA given Datetime: 12/28/2023 07:23 Stage of : Recovery Datetime: 12/28/2023 07:22 Stage 2 Comments: Delivered Datetime: 12/28/2023 07:20 UTERINE ACTIVITY Monitor Mode: External Monitor Interventions for UA: [place] Adjusted Frequency (min): 2-3 Quality: Strong FHR Baseline Rate : 130 Decelerations: Early; Variable Datetime: 12/28/2023 07:17 Pattern: Normal: <= 5 Contractions in 10 Minutes ASSESSMENT A Monitor Mode: External US Oxygen Method: Room Air Datetime: 12/28/2023 07:16 Pushing Progress: with Pushing Datetime: 12/28/2023 07:15 LaborFlag: Labor Datetime: 12/28/2023 07:13 Contraction Comments: pushing FHR Baseline Changes: No Baseline Change Variability: Moderate 6-25 bpm Accelerations: 15X15 Category: Category I Pushing Position: Pushing with Contractions Datetime: 12/28/2023 07:00 Duration (sec): 60-100 Datetime: 12/28/2023 06:45 Patient Care Comments: RN at Bedside, RN Reviewed Strip, Provider at Bedside Datetime: 12/28/2023 06:43 Strip Reviewed by: Isaac Velez COMMUNICATION Communication: RN at Bedside; RN Reviewed Strip; Provider at Bedside Datetime: 12/28/2023 06:25 Comments: RN at Bedside, RN Reviewed Strip, Provider at Bedside Datetime: 12/28/2023 06:00 Resting Tone (Palpate): Relaxed Datetime: 12/28/2023 05:41 STAGE 2 Pushing: Coached on Pushing Datetime: 12/28/2023 05:21 VAGINAL EXAM Dilatation (cm): 10.0 Effacement (%): 100 Station: 0 Exam by: murraf Vaginal Bleeding: Scant Cervix, Consistency: Soft Cervix, Position: Anterior Datetime: 12/28/2023 05:01 Respirations: 18 Amniotic Fluid Color: Clear Amniotic Fluid Amount: Small Datetime: 12/28/2023 04:47 Temperature (C): 36.6 Membrane Status: Ruptured Membranes Rupture Method: Spontaneous Amniotic Fluid Odor: Normal MATERNAL ASSESSMENT Level of Consciousness: Alert Nausea/Vomiting: Denies RUQ Epigastric Pain: Denies Datetime: 12/28/2023 04:35 Provider Notified (Name): J ruby Notification Reason: Status Update; Labor Status Datetime: 12/28/2023 04:00 TEACHING Instructional Method: Verbal Plan of Care: Plan of Care Discussed Labor/Induction: Labor Stages; Pushing Methods Datetime: 12/28/2023 03:50 Anesthesia Comments: patient encouraged to use her pcea button Datetime: 12/28/2023 03:24 Pain Presence: Intermittent Pain Type: Cramping Pain Location: Perineum Pain Coping: Talking Through Contractions Datetime: 12/28/2023 01:15 Headache: Denies Patient Position/Activity: Left Tilt; Right Tilt; Semi-Fowlers I/O Interventions: Ice Chips Given Datetime: 12/28/2023 00:31 Pain Assessment Comments: epidural bag changed Datetime: 12/28/2023 00:23 MEDICATIONS Pitocin (milliunits): Started @ 1 mu Datetime: 12/28/2023 00:11 Monitor Interventions for FHR: Ultrasound Adjusted Datetime: 12/27/2023 22:53 Membranes Ruptured Date/Time: 12/28/2023 04:47 Datetime: 12/27/2023 18:58 Pain Relief Measures: ROOM SERVICE WAITER/WAITRESS Use DTR's/Clonus: DTRs 2+; No Clonus Breath Sounds, Left: Clear and Equal Breath Sounds, Right: Clear and Equal Comfort Measures: Breathing/Relaxation ANESTHESIA Anesthesia Plans: Epidural Datetime: 12/27/2023 18:39 Antiemetics/Antacids: Zofran (mg) @ 4 Datetime: 12/27/2023 18:19 SpO2 (%): 98 Datetime: 12/27/2023 18:00 Epidural Procedure: Loading Dose Datetime: 12/27/2023 13:54 Provider Reviewed Strip: Yes Datetime: 12/27/2023 13:19 PATIENT CARE IV/Blood Work: IV Bolus Given ml @ 500 Datetime: 12/27/2023 12:03 PAIN Pain Scale: 1 Datetime: 12/27/2023 10:29 Cervical Ripening Agents: Cytotec @ Datetime: 12/27/2023 09:16 Unit Routine: [place] to Room; Unit Personnel; Monitoring Pain Management: Epidural Related: Nutrition; Hydration; Activity and Rest
== END 2023-12-29 10:40 | disposition home or self-care (01) | DRG 768 ==
LOC: FBP 08:05 → WFO 08:05 → UNDOADMOB 09:04 → FBP 09:04 → OBSVTOIN 12-28 00:30
PROVIDERS: ADMIT Obstetrics & Gynecology; ATTEND Obstetrics & Gynecology
PROC: 10E0XZZ Delivery of Products of Conception, External Approach (ICD-10-PCS; principal; 2023-12-28)
PROC: 0DQR0ZZ Repair Anal Sphincter, Open Approach (ICD-10-PCS; 2023-12-28)
PROC: 0UQMXZZ Repair Vulva, External Approach (ICD-10-PCS; 2023-12-28)
DX: O70.21 Third degree perineal laceration during delivery, IIIa (principal); Z37.0 Single live birth; O99.42 Diseases of the circulatory system complicating childbirth; O72.1 Other immediate postpartum hemorrhage; O48.0 Post-term pregnancy; Z3A.41 41 weeks gestation of pregnancy; O77.0 Labor and delivery complicated by meconium in amniotic fluid; O71.82 Other specified trauma to perineum and vulva; Z87.891 Personal history of nicotine dependence; O76 Abnormality in fetal heart rate and rhythm complicating labor and delivery; I95.9 Hypotension, unspecified
CPT/HCPCS: 36415; 59409; 85025; 86850; 86900; 86901; A9270; J7120